=== PATIENT | female | born 1975 | race Caucasian/White ===

== ENCOUNTER 2016-05-29 15:05 | Emergency (ER) | payer OTHER, MEDICAID ==
[2016-05-29] MEDS ORDERED: PROPARACAINE HCL 0.5% 300 GTTS/BOT SOLN.DROP ONE (15:13)
== END 2016-05-29 15:48 | disposition home or self-care (01) ==
LOC: ED 15:05
DX: S05.02XA Injury of conjunctiva and corneal abrasion without foreign body, left eye, initial encounter (principal); X58.XXXA Exposure to other specified factors, initial encounter; F17.200 Nicotine dependence, unspecified, uncomplicated
CPT/HCPCS: 99283; 99282; A9270

== ENCOUNTER 2016-08-25 00:03 | Emergency (ER) | payer MEDICAID ==
[2016-08-25] MEDS ORDERED: ONDANSETRON 4 MG ODT TAB ONE (03:55)
== END 2016-08-25 03:13 | disposition home or self-care (01) ==
LOC: ED 00:03
DX: M79.89 Other specified soft tissue disorders (principal); R42 Dizziness and giddiness; Z53.21 Procedure and treatment not carried out due to patient leaving prior to being seen by health care provider